=== PATIENT | female | born 1970 | race Caucasian/White ===

== ENCOUNTER 2017-04-11 08:30 | Emergency (ER) | payer BC, OTHER ==
[~2017-04-11 08:30] MED LIST: CELE200C PO; FLUO20CA16 PO; OLAN10TA3 PO; ZOLP5TAB PO
[2017-04-11] MEDS ORDERED: fentaNYL PF 100 MCG/2 ML VIAL IV PRN (09:00)
--- NOTE | 2017-04-11 09:04 | PHYS DOC ---
Past History Past Medical History: No Pertinent History Past Surgical History: , Hysterectomy Adult General Chief Complaint Chief Complaint: abdominal pain HPI HPI Patient is a 46 year old female who presents with complaint of left lower quadrant abdominal pain. Patient states that she has noticed pain in the affected area over the past month, however she states that she has been getting worsening sharp pains in this area over the past 2-3 days. The patient states that she has a constant dull ache in the affected area. Patient states that she started having constant sharp pain to this area this morning and it has been severe ever since. Patient rates her pain currently is 10 out of 10. Patient states that she has had associated diarrhea with her symptoms. Patient denies any passage of blood in her stool. Patient has had no fevers and denies dysuria. Patient states that occasionally she has taken Advil for her symptoms with no relief. Patient denies any significant past medical history. Patient has had history of a hysterectomy. Denies nausea or vomiting. Review of Systems Review of Systems Constitutional: Denies fever or chills [] Eyes: Denies change in visual acuity, redness, or eye pain [] HENT: Denies nasal congestion or sore throat [] Respiratory: Denies cough or shortness of breath [] Cardiovascular: Denies chest pain or edema [] GI: Abdominal pain, diarrhea, denies nausea, vomiting, or bloody stools [] : Denies dysuria or hematuria [] Musculoskeletal: Denies back pain or joint pain [] Integument: Denies rash or skin lesions [] Neurologic: Denies headache, focal weakness or sensory changes [] Current Medications Current Medications Current Medications Medications (Trade) Dose Ordered Sig/Emerita Start Time Stop Time Status Last Admin Dose Admin Fentanyl Citrate (Fentanyl 2ml Vial) 50 mcg PRN Q15MIN PRN 04/11/17 09:00 04/12/17 08:59 Ondansetron HCl (Zofran) 4 mg 1X ONCE 04/11/17 09:00 04/11/17 09:01 UNV Sodium Chloride 1,000 ml @ 1,000 mls/hr Q1H 04/11/17 09:10 04/11/17 10:09 Allergies Allergies Allergies Coded Allergies Type Severity Reaction Last Updated Verified No Known Drug Allergies 01/27/14 No Physical Exam Physical Exam Constitutional: Alert, afebrile, appears in moderate discomfort. [] HENT: Normocephalic, atraumatic, bilateral external ears normal, oropharynx moist, no oral exudates, nose normal. [] Eyes: PERRLA, EOMI, conjunctiva normal, no discharge. [] Neck: Normal range of motion, no tenderness, supple, no stridor. [] Cardiovascular:Heart rate regular rhythm, no murmur [] Lungs & Thorax: Bilateral breath sounds clear to auscultation [] Abdomen: Bowel sounds normal, soft, left lower quadrant tenderness to palpation with guarding, no rebound tenderness, no masses, no pulsatile masses. [] Skin: Warm, dry, no erythema, no rash. [] Back: No tenderness, no CVA tenderness. [] Extremities: No tenderness, no cyanosis, no clubbing, ROM intact, no edema. [] Neurologic: Alert and oriented X 3, normal motor function, normal sensory function, no focal deficits noted. [] Current Patient Data Vital Signs Vital Signs Date Time Temp Pulse Resp B/P (MAP) Pulse Ox O2 Delivery O2 Flow Rate FiO2 04/11/17 09:23 64 18 97/54 (68) 96 Room Air 04/11/17 08:30 98.6 Lab Results Laboratory Tests Test 04/11/17 09:00 04/11/17 09:33 White Blood Count 6.9 x10^3/uL Red Blood Count 4.16 x10^6/uL Hemoglobin 13.0 g/dL Hematocrit 38.6 % Mean Corpuscular Volume 93 fL Mean Corpuscular Hemoglobin 31 pg Mean Corpuscular Hemoglobin Concent 34 g/dL Red Cell Distribution Width 13.1 % Platelet Count 211 x10^3/uL Neutrophils (%) (Auto) 53 % Lymphocytes (%) (Auto) 33 % Monocytes (%) (Auto) 11 % Eosinophils (%) (Auto) 3 % Basophils (%) (Auto) 1 % Neutrophils # (Auto) 3.6 x10^3uL Lymphocytes # (Auto) 2.3 x10^3/uL Monocytes # (Auto) 0.7 x10^3/uL Eosinophils # (Auto) 0.2 x10^3/uL Basophils # (Auto) 0.1 x10^3/uL Sodium Level 140 mmol/L Potassium Level 4.0 mmol/L Chloride Level 105 mmol/L Carbon Dioxide Level 27 mmol/L Anion Gap 8 Blood Urea Nitrogen 11 mg/dL Creatinine 0.8 mg/dL Estimated GFR (Cockcroft-Gault) 77.9 BUN/Creatinine Ratio 14 Glucose Level 96 mg/dL Calcium Level 8.5 mg/dL Total Bilirubin 0.4 mg/dL Aspartate Amino Transf (AST/SGOT) 18 U/L Alanine Aminotransferase (ALT/SGPT) 21 U/L Alkaline Phosphatase 130 U/L Total Protein 6.9 g/dL Albumin 3.6 g/dL Albumin/Globulin Ratio 1.1 Lipase 128 U/L Urine Collection Type Void Urine Color Sonam Urine Clarity Clear Urine pH 7.0 Urine Specific Benedict 1.020 Urine Protein Neg Urine Glucose (UA) Neg mg/dL Urine Ketones (Stick) Neg mg/dL Urine Blood Neg Urine Nitrite Neg Urine Bilirubin Neg Urine Urobilinogen Dipstick 1 mg/dL Urine Leukocyte Esterase Neg Urine RBC 0 /HPF Urine WBC 0 /HPF Urine Squamous Epithelial Cells Occ /LPF Urine Transitional Epithelial Cells /LPF Urine Amorphous Sediment Present /HPF Urine Bacteria Few /HPF Urine Mucus Slight /LPF Current Medications Medications (Trade) Dose Ordered Sig/Emerita Route PRN Reason Start Time Stop Time Status Last Admin Dose Admin Fentanyl Citrate (Fentanyl 2ml Vial) 50 mcg PRN Q15MIN PRN IV PAIN GREATER THAN 3/10 04/11/17 09:00 04/12/17 08:59 04/11/17 09:21 Sodium Chloride 1,000 ml @ 1,000 mls/hr Q1H IV 04/11/17 09:10 04/11/17 10:10 DC 04/11/17 09:15 Ondansetron HCl (Zofran) 4 mg 1X ONCE IV 04/11/17 09:10 04/11/17 09:11 DC 04/11/17 09:18 Iohexol (Omnipaque 300 Mg/ml) 75 ml 1X ONCE IV 04/11/17 09:35 04/11/17 09:36 DC 04/11/17 09:35 EKG EKG Not performed [] Radiology/Procedures Radiology/Procedures [address] [address] IMAGING REPORT Signed PATIENT: BELL GARCIA ACCOUNT: [id number] : 1970 LOCATION: ER AGE: 46 SEX: F EXAM STATUS: PRE ER ORD. PHYSICIAN: JAVIER FRANCES MD REASON: left lower quadrant abdominal pain, diarrhea PROCEDURE: CT ABD PELV W/ IV CONTRST ONLY CT of the abdomen and pelvis with contrast, 04/11/2017: History: Left lower quadrant pain Multidetector CT imaging was performed following an IV bolus injection of iodinated contrast material. No oral contrast material was administered for this exam. There is no evidence of a hepatic mass or bile duct dilatation. No gallstones are evident. The pancreas is unremarkable. The spleen shows no abnormality. There is a tiny subcentimeter cyst in the lower pole of the right kidney. The kidneys show no evidence of obstruction. No renal calculi are seen. The adrenal glands are unremarkable. There is mild aortic calcific plaquing without evidence of aneurysm. No abdominal or pelvic adenopathy is seen. The uterus is surgically absent. The bowel loops are not dilated. The appendix is visualized and shows no abnormality. No free fluid or free air is evident in the abdomen or pelvis. A small unchanged sclerotic focus in the left femoral neck is compatible with a benign bone island. IMPRESSION: No acute abdominal or pelvic abnormality is detected. PQRS Compliance Statement: One or more of the following individualized dose reduction techniques were utilized for this examination: 1. Automated exposure control 2. Adjustment of the mA and/or kV according to patient size 3. Use of iterative reconstruction technique DICTATED AND SIGNED BY: ROBBIE CLAUDIO MD DATE: 04/11/17 0952 CC: JAVIER FRANCES MD; PCP,NO ~ [] Course & Med Decision Making Course & Med Decision Making Pertinent Labs and Imaging studies reviewed. (See chart for details) Patient was given IV fluids, fentanyl, and Zofran for symptoms. The patient's CT scan showed no acute abnormalities. Given patient's left lower quadrant pain with diarrhea, colitis remains a possible cause for patient's signs and symptoms. The patient will be empirically treated with Flagyl and Cipro. Patient also given prescriptions for Oden and Zofran for treatment of pain and nausea. Advise follow-up in 2 days with patient's primary doctor. I also provided referral information to Dr. Andrew of gastroenterology for patient to schedule an appointment in the next 1-2 weeks for further evaluation. Advised return emergency department for any worsening symptoms. Patient voiced understanding and in agreement with treatment plan. Dragon Disclaimer Dragon Disclaimer This chart was dictated in whole or in part using Voice Recognition software in a busy, high-work load, and often noisy Emergency Department environment. It may contain unintended and wholly unrecognized errors or omissions. Departure Departure: Impression: Primary Impression: Abdominal pain Disposition: HOME, SELF-CARE Condition: IMPROVED Referrals: PCP,JADE (PCP) KAYLIN ANDREW MD Patient Instructions: Abdominal Pain (Nonspecific) Additional Instructions: Follow-up with your primary doctor in the next 2 days for reevaluation. Schedule an appointment with Dr. Andrew of gastroenterology follow-up in the next 1-2 weeks. Return to the emergency department for any worsening symptoms. Scripts Ondansetron (ZOFRAN ODT) 4 Mg Tab.rapdis 1 TAB SL Q8HRS Y for NAUSEA/VOMITING, #20 TAB Prov: JAVIER FRANCES MD 04/11/17 Hydrocodone Bit/Acetaminophen (NORCO 5-325 TABLET) 1 Each Tablet 1-2 TAB PO Q4-6HRS Y for PAIN, #20 TAB Prov: JAVIER FRANCES MD 04/11/17 Ciprofloxacin Hcl (CIPRO) 500 Mg Tablet 1 TAB PO BID, #20 TAB Prov: JAVIER FRANCES MD 04/11/17 Metronidazole (FLAGYL) 500 Mg Tablet 1 TAB PO TID, #30 TAB Prov: JAVIER FRANCES MD 04/11/17 Problem Qualifiers Primary Impression: Abdominal pain Abdominal location: left lower quadrant Qualified Codes: R10.32 - Left lower quadrant pain JAVIER FRANCES MD Apr 11, 2017 09:04
[2017-04-11] MEDS ORDERED: IV NORMAL SALINE 1,000ML 1,000 ML IV SCH (09:10)
[2017-04-11] MEDS ORDERED: ONDANSETRON PF 4 MG/2 ML VIAL. IV ONE (09:10)
[2017-04-11 09:14] LABS: BASO # 0.1 x10^3/uL (0.0-0.2); BASO % 1 % (0-3); EOS # 0.2 x10^3/uL (0.0-0.7); EOS % 3 % (0-3); HEMATOCRIT 38.6 % (36.0-47.0); LYMPH # 2.3 x10^3/uL (1.0-4.8); LYMPH % 33 % (24-48); MEAN CORPUSCULAR HEMOGLOBIN 31 pg (25-35); MEAN CORPUSCULAR HGB CONC 34 g/dL (31-37); MEAN CORPUSCULAR VOLUME 93 fL (79-100); MONO # 0.7 x10^3/uL (0.0-1.1); MONO % 11 % (0-9); NEUT # 3.6 x10^3uL (1.8-7.7); NEUT % 53 % (31-73); PLATELET COUNT 211 x10^3/uL (140-400); RED BLOOD COUNT 4.16 x10^6/uL (3.50-5.40); RED CELL DISTRIBUTION WIDTH 13.1 % (11.5-14.5); WHITE BLOOD COUNT 6.9 x10^3/uL (4.0-11.0)
[2017-04-11 09:26] LABS: ALBUMIN 3.6 g/dL (3.4-5.0); ALBUMIN/GLOBULIN RATIO 1.1 (1.0-1.7); CALCIUM 8.5 mg/dL (8.5-10.1); CREATININE 0.8 mg/dL (0.6-1.0); GFR 77.9; TOTAL BILIRUBIN 0.4 mg/dL (0.2-1.0); TOTAL PROTEIN 6.9 g/dL (6.4-8.2)
[2017-04-11] MEDS ORDERED: IOHEXOL 300 MG/ML 75 ML VIAL. IV ONE (09:35)
[2017-04-11 09:48] LABS: BILIRUBIN,URINE NEG (NEG); CLARITY,URINE CLEAR; COLOR,URINE AMBER; GLUCOSE,URINE NEG (NEG); NITRITE,URINE NEG (NEG); UROBILINOGEN,URINE 1 mg/dL (0.2 mg/dL); WBC,URINE 0 /HPF (0-4)
[2017-04-11 09:49] LABS: AMORPHOUS SEDIMENT,UR PRESENT /HPF; BACTERIA,URINE FEW /HPF (0-FEW); RBC,URINE 0 /HPF (0-2); SQUAMOUS EPITHELIAL CELL,UR OCC /LPF
--- NOTE | 2017-04-11 10:02 | RAD ---
CT of the abdomen and pelvis with contrast, 04/11/2017: History: Left lower quadrant pain Multidetector CT imaging was performed following an IV bolus injection of iodinated contrast material. No oral contrast material was administered for this exam. There is no evidence of a hepatic mass or bile duct dilatation. No gallstones are evident. The pancreas is unremarkable. The spleen shows no abnormality. There is a tiny subcentimeter cyst in the lower pole of the right kidney. The kidneys show no evidence of obstruction. No renal calculi are seen. The adrenal glands are unremarkable. There is mild aortic calcific plaquing without evidence of aneurysm. No abdominal or pelvic adenopathy is seen. The uterus is surgically absent. The bowel loops are not dilated. The appendix is visualized and shows no abnormality. No free fluid or free air is evident in the abdomen or pelvis. A small unchanged sclerotic focus in the left femoral neck is compatible with a benign bone island. IMPRESSION: No acute abdominal or pelvic abnormality is detected. PQRS Compliance Statement: One or more of the following individualized dose reduction techniques were utilized for this examination: 1. Automated exposure control 2. Adjustment of the mA and/or kV according to patient size 3. Use of iterative reconstruction technique
[2017-04-11] MEDS ORDERED: CIPR500T94 PO (10:26)
[2017-04-11] MEDS ORDERED: METR500T PO (10:26)
[2017-04-11] MEDS ORDERED: ONDA4TAB10 SL (10:26)
[2017-04-11] MEDS ORDERED: HYDR-971 PO (10:26)
[2017-04-11 10:40] VITALS: BP 102/59
== END 2017-04-11 10:40 | disposition home or self-care (01) ==
LOC: ER 08:30
DX: R10.32 Left lower quadrant pain (principal); R11.0 Nausea; Z90.710 Acquired absence of both cervix and uterus; Z98.890 Other specified postprocedural states
CPT/HCPCS: 36415; 74177; 80053; 81001; 83690; 85027; 96361; 96374; 96375; 99285; J2405; J3010; Q9967; J7030

== ENCOUNTER 2018-03-07 16:57 | Emergency (ER) | payer SELFPAY ==
[~2018-03-07] VITALS: Ht 167.6 cm; Wt 83.9 kg
[~2018-03-07 16:57] MED LIST changes: +CIPR500T94 PO; +HYDR-971 PO; +METR500T PO; +ONDA4TAB10 SL
[2018-03-07 17:39] LABS: BACTERIA,URINE FEW /HPF (0-FEW); BILIRUBIN,URINE NEG (NEG); CLARITY,URINE HAZY; COLOR,URINE YELLOW; GLUCOSE,URINE NEG (NEG); NITRITE,URINE NEG (NEG); RBC,URINE 0 /HPF (0-2); SQUAMOUS EPITHELIAL CELL,UR MANY /LPF; UROBILINOGEN,URINE 0.2 mg/dL (0.2 mg/dL); WBC,URINE RARE /HPF (0-4)
--- NOTE | 2018-03-07 17:58 | PHYS DOC ---
Past History Past Medical History: Anxiety, Depression Past Surgical History: , Hysterectomy, Other Alcohol Use: Rarely Drug Use: None Adult General Chief Complaint Chief Complaint: ABDOMINAL PAIN HPI HPI Patient is a 47-year-old female present with left-sided abdominal pain she says it is on her left flank area right where her pelvis bone meets her stomach she says it has been there 3 days it is getting worse it is described as sharp worse with twisting or bending is better when she sits still. She does not have any urinary symptoms she has had a hysterectomy and her ovaries removed as well. She has had a kidney stone on the right side in the remote past. Of note she did have an emergency room visit for pain in similar location last year with a negative CAT scan patient has no fever no vomiting JUST THE PAIN Review of Systems Review of Systems Constitutional: Denies fever or chills [] Cardiovascular: No additional information not addressed in HPI [] GI: HPI NEG FOR DIARRHEA : Denies dysuria or hematuria [] Musculoskeletal: HPI All other systems were reviewed and found to be within normal limits, except as documented in this note. Family History Family History Father has had colon cancer dx at age 50. Allergies Allergies Allergies Coded Allergies Type Severity Reaction Last Updated Verified No Known Drug Allergies 01/27/14 No Physical Exam Physical Exam Constitutional: Well developed, well nourished, no acute distress, non-toxic appearance. [] HENT: Normocephalic, atraumatic, bilateral external ears normal, oropharynx moist, no oral exudates, nose normal. [] Eyes: PERRLA, EOMI, conjunctiva normal, no discharge. [] Neck: Normal range of motion, no tenderness, supple, no stridor. [] Normal respiratory effort no increased work of breathing Abdomen: Bowel sounds normal, soft, there is mild tenderness to palpation in the left lower quadrant just adjacent to the ASIS no peritoneal signs. Old surgery scars. Skin: Warm, dry, no erythema, no rash. [] Multiple tattoos noted Back: No tenderness, no CVA tenderness. [] Extremities: No tenderness, no cyanosis, no clubbing, ROM intact, no edema. [] Neurologic: Alert and oriented X 3, normal motor function, normal sensory function, no focal deficits noted. [] Psychologic: Affect normal, judgement normal, mood normal. [] Current Patient Data Vital Signs Vital Signs Date Time Temp Pulse Resp B/P (MAP) Pulse Ox O2 Delivery O2 Flow Rate FiO2 03/07/18 17:10 98.6 75 16 97 Room Air Lab Results Laboratory Tests Test 03/07/18 17:14 Urine Collection Type Unknown Urine Color Yellow Urine Clarity Hazy Urine pH 5.0 Urine Specific Cisco 1.025 Urine Protein Neg (NEG-TRACE) Urine Glucose (UA) Neg mg/dL (NEG) Urine Ketones (Stick) Neg mg/dL (NEG) Urine Blood Neg (NEG) Urine Nitrite Neg (NEG) Urine Bilirubin Neg (NEG) Urine Urobilinogen Dipstick 0.2 mg/dL (0.2 mg/dL) Urine Leukocyte Esterase Neg (NEG) Urine RBC 0 /HPF (0-2) Urine WBC Rare /HPF (0-4) Urine Squamous Epithelial Cells Many /LPF Urine Bacteria Few /HPF (0-FEW) Urine Mucus Mod /LPF EKG EKG [] Radiology/Procedures Radiology/Procedures CT of abdomen noncontrast shows no hydronephrosis. Does have findings of previous renal stones. No current stone causing hydronephrosis. No other surgical pathology appreciated this time. Course & Med Decision Making Course & Med Decision Making Pertinent Labs and Imaging studies reviewed. (See chart for details) []This is a 47-year-old female who is status post hysterectomy and nephrectomy who is presenting with left-sided abdominal discomfort differential diagnosis includes renal colic versus diverticulitis versus urinary tract infection. UA is noted no obvious findings on this. I did talk to the patient about the risks and benefits of a CAT scan primarily to evaluate for renal colic less likely diverticulitis. She says she would like to know for sure what is going on lab work is currently pending CT scan is also pending care will be signed over to DR SAENZ 6 PM Encouraged patient to follow-up primary care. Clear fluid diet for the next 24- 48 hours. No solid or milk products. Must allow complete bowel rest. May take Vicoprofen up to 3 times a day for marked pain. Zofran for nausea. Strongly recommend colonoscopy evaluate for colitis, diverticulitis and Crohn since her father had colon cancer by age 50. Return if any concerns. No current surgical pathology appreciated at this time. . Contrast CT could be considered if further workup desired. But with normal vitals and labs will monitor on clear fluid s diet first. Patient return if any concerns. Patient reports minimal discomfort at this time refuses any pain tablets. Impression: 1. Abdomen pain 2. Renal colic- has findings of stones in kidneys and bladder- no hydronephrosis this time 3. Possible colitis or diverticulitis-has caused pain 4. Possible adhesion pain- prior surgeries Dragon Disclaimer Dragon Disclaimer This electronic medical record was generated, in whole or in part, using a voice recognition dictation system. Departure Departure: Referrals: PCP,JADE (PCP) Scripts Ondansetron (ZOFRAN ODT) 8 Mg Tab.rapdis 8 MG PO QIDPRN PRN for PAIN, #30 Prov: DEXTER SAENZ MD 03/07/18 Hydrocodone/Ibuprofen (HYDROCODONE-IBUPROFEN 7.5-200 ) 1 Each Tablet 1 TAB PO PRN Q6HRS PRN for PAIN, #30 TAB 0 Refills Prov: DEXTER SAENZ MD 03/07/18 LOWELL CULP MD Mar 07, 2018 17:58 DEXTER SAENZ MD Mar 07, 2018 19:44
[2018-03-07 18:07] LABS: BASO # 0.1 x10^3/uL (0.0-0.2); BASO % 1 % (0-3); EOS # 0.2 x10^3/uL (0.0-0.7); EOS % 2 % (0-3); HEMATOCRIT 40.9 % (36.0-47.0); LYMPH % 38 % (24-48); MEAN CORPUSCULAR HEMOGLOBIN 33 pg (25-35); MEAN CORPUSCULAR HGB CONC 34 g/dL (31-37); MEAN CORPUSCULAR VOLUME 95 fL (79-100); MONO # 0.6 x10^3/uL (0.0-1.1); MONO % 7 % (0-9); NEUT % 52 % (31-73); PLATELET COUNT 217 x10^3/uL (140-400); RED CELL DISTRIBUTION WIDTH 13.4 % (11.5-14.5); WHITE BLOOD COUNT 7.7 x10^3/uL (4.0-11.0)
[2018-03-07 18:22] LABS: ALBUMIN 3.9 g/dL (3.4-5.0); ALBUMIN/GLOBULIN RATIO 1.2 (1.0-1.7); CALCIUM 8.8 mg/dL (8.5-10.1); CREATININE 0.8 mg/dL (0.6-1.0); GFR 77.6; POTASSIUM 4.1 mmol/L (3.5-5.1); TOTAL BILIRUBIN 0.4 mg/dL (0.2-1.0); TOTAL PROTEIN 7.1 g/dL (6.4-8.2)
--- NOTE | 2018-03-07 19:18 | RAD ---
EXAM: CT ABDOMEN/PELVIS WITHOUT CONTRAST. HISTORY: Left flank pain. History of renal stones. TECHNIQUE: Computed tomography of the abdomen and pelvis was performed without intravenous contrast. COMPARISON: None. FINDINGS: Lung windows through the visualized portions of the bases reveal mild atelectasis. Bone windows reveal no suspicious lesions. A calculus in the left interpolar region measures 3 mm. There is no hydronephrosis. There are no ureteral calculi bilaterally. A small cyst at the right renal lower pole measures 9 mm. There are no bladder calculi. The uterus is surgically absent. The appendix is not inflamed. There is no small bowel obstruction. The liver, gallbladder, pancreas, adrenal glands and spleen are unremarkable without contrast. There are no pathologically enlarged lymph nodes. IMPRESSION: 1. 3 mm left renal calculus. 2. No ureteral calculi. No cause for acute pain is identified. *One or more of the following individualized dose reduction techniques were utilized for this examination: 1. Automated exposure control. 2. Adjustment of the mA and/or kV according to patient size. 3. Use of iterative reconstruction technique. Electronically signed by: Lucero Brothers MD (03/07/2018 7:15 PM) [facility]
[2018-03-07] MEDS ORDERED: ONDA8TAB12 PO (19:31)
[2018-03-07] MEDS ORDERED: HYDR-79 PO (19:31)
[2018-03-07 19:42] VITALS: BP 134/80
== END 2018-03-07 19:45 | disposition home or self-care (01) ==
LOC: ER 16:57
DX: N20.0 Calculus of kidney (principal); Z90.710 Acquired absence of both cervix and uterus; Z98.890 Other specified postprocedural states
CPT/HCPCS: 36415; 74176; 80053; 81001; 85025; 99285-25

== ENCOUNTER 2018-12-22 06:20 | Emergency (ER) | payer BC ==
[~2018-12-22] VITALS: Ht 167.6 cm; Wt 72.6 kg
[~2018-12-22 06:20] MED LIST changes: +HYDR-1179 PO; +HYDR-3165 PO; -HYDR-971 PO; +ONDA8TAB12 PO
[2018-12-22 07:07] LABS: BASO # 0.1 x10^3/uL (0.0-0.2); BASO % 1 % (0-3); EOS # 0.2 x10^3/uL (0.0-0.7); EOS % 2 % (0-3); HEMATOCRIT 39.4 % (36.0-47.0); HEMOGLOBIN 13.5 g/dL (12.0-15.5); LYMPH # 3.3 x10^3/uL (1.0-4.8); LYMPH % 38 % (24-48); MEAN CORPUSCULAR HEMOGLOBIN 32 pg (25-35); MEAN CORPUSCULAR HGB CONC 34 g/dL (31-37); MEAN CORPUSCULAR VOLUME 94 fL (79-100); MONO # 0.6 x10^3/uL (0.0-1.1); MONO % 7 % (0-9); NEUT # 4.6 x10^3uL (1.8-7.7); NEUT % 53 % (31-73); PLATELET COUNT 225 x10^3/uL (140-400); RED BLOOD COUNT 4.21 x10^6/uL (3.50-5.40); WHITE BLOOD COUNT 8.7 x10^3/uL (4.0-11.0)
[2018-12-22] MEDS ORDERED: ASPIRIN 325 MG TABLET ONE (07:10)
[2018-12-22 07:13] LABS: ALBUMIN 4.1 g/dL (3.4-5.0); ALBUMIN/GLOBULIN RATIO 1.3 (1.0-1.7); CALCIUM 9.3 mg/dL (8.5-10.1); CREATININE 0.8 mg/dL (0.6-1.0); GFR 77.2; POTASSIUM 3.8 mmol/L (3.5-5.1); TOTAL BILIRUBIN 0.4 mg/dL (0.2-1.0); TOTAL PROTEIN 7.3 g/dL (6.4-8.2)
[2018-12-22] MEDS ORDERED: ASPIRIN 81 MG TAB.CHEW PO ONE (07:30)
--- NOTE | 2018-12-22 07:40 | PHYS DOC ---
Past History Past Medical History: Anxiety, Depression, Other Past Surgical History: , Hysterectomy, Other Smoking: Cigarettes Alcohol Use: Rarely Drug Use: None Adult General Chief Complaint Chief Complaint: Palpitations HPI HPI Patient is a 48 year old female who presents with complaining of heart racing and back pain. Patient complaining of intermittent episodes of feeling of shaking on her chest and didn't heart racing that usually last less than 1 minute with left arm electrical shock-like pain at the same time without shortness of breath, dizziness, nausea and vomiting. Patient states she had 4-5 episodes of this feeling for the last 2 weeks without chest pain but today had 1 episode that was associated with left sided chest heaviness and rated her pain 3/10 associated with shortness of breath that resolved after 1 minute. Patient also complaining of sharp pain in upper back for the last 3 days as a constant pain that getting worse with movement and taking deep breaths and rated her pain 10/10 during movement. Patient states she did not take any pain medication and doesn't like to take pain medication. Patient denies history of chest pain, palpitation, recent stress, fever and chills, nausea and vomiting, diarrhea and constipation. Patient states she drinks several coffee daily. The patient has history of anxiety and depression and denies hypertension, diabetes , dyslipidemia, coronary artery disease. Patient had positive family history of coronary artery disease and currently is a smoker. Review of Systems Review of Systems Constitutional: Denies fever or chills [] Eyes: Denies change in visual acuity, redness, or eye pain [] HENT: Denies nasal congestion or sore throat [] Respiratory: Denies cough or shortness of breath [] Cardiovascular: No additional information not addressed in HPI [] GI: Denies abdominal pain, nausea, vomiting, bloody stools or diarrhea [] : Denies dysuria or hematuria [] Musculoskeletal: Reports back pain, denies joint pain [] Integument: Denies rash or skin lesions [] Neurologic: Denies headache, focal weakness or sensory changes [] Endocrine: Denies polyuria or polydipsia [] All other systems were reviewed and found to be within normal limits, except as documented in this note. Current Medications Current Medications Current Medications Medications (Trade) Dose Ordered Sig/Emerita Start Time Stop Time Status Last Admin Dose Admin Aspirin (Lorraine Aspirin) 325 mg STK-MED ONCE 12/22/18 07:10 12/22/18 07:11 DC Aspirin (Children'S Aspirin) 324 mg 1X ONCE 12/22/18 07:30 12/22/18 07:31 Allergies Allergies Allergies Coded Allergies Type Severity Reaction Last Updated Verified No Known Drug Allergies 01/27/14 No Physical Exam Physical Exam Constitutional: Well developed, well nourished, mild distress, non-toxic appearance. [] HENT: Normocephalic, atraumatic Eyes: PERRLA, EOMI, conjunctiva normal, no discharge. [] Neck: Normal range of motion, no tenderness, supple, no stridor. [] Cardiovascular:Heart rate regular rhythm, no murmur [] Lungs & Thorax: Bilateral breath sounds clear to auscultation, mild left reproducible chest pain [] Abdomen: Bowel sounds normal, soft, no tenderness, no masses, no pulsatile masses. [] Skin: Warm, dry, no erythema, no rash. [] Back: Painful range of motion of thoracic spine, no midline tenderness, no CVA tenderness. [] Extremities: No tenderness, no cyanosis, no clubbing, ROM intact, no edema. [] Neurologic: Alert and oriented X 3, normal motor function, normal sensory function, no focal deficits noted. [] Psychologic: Affect anxious, judgement normal, mood normal. [] Current Patient Data Vital Signs Vital Signs Date Time Temp Pulse Resp B/P (MAP) Pulse Ox O2 Delivery O2 Flow Rate FiO2 12/22/18 06:20 97.7 76 18 100 Room Air Lab Results Laboratory Tests Test 12/22/18 06:35 White Blood Count 8.7 x10^3/uL (4.0-11.0) Red Blood Count 4.21 x10^6/uL (3.50-5.40) Hemoglobin 13.5 g/dL (12.0-15.5) Hematocrit 39.4 % (36.0-47.0) Mean Corpuscular Volume 94 fL (79-100) Mean Corpuscular Hemoglobin 32 pg (25-35) Mean Corpuscular Hemoglobin Concent 34 g/dL (31-37) Red Cell Distribution Width 13.0 % (11.5-14.5) Platelet Count 225 x10^3/uL (140-400) Neutrophils (%) (Auto) 53 % (31-73) Lymphocytes (%) (Auto) 38 % (24-48) Monocytes (%) (Auto) 7 % (0-9) Eosinophils (%) (Auto) 2 % (0-3) Basophils (%) (Auto) 1 % (0-3) Neutrophils # (Auto) 4.6 x10^3uL (1.8-7.7) Lymphocytes # (Auto) 3.3 x10^3/uL (1.0-4.8) Monocytes # (Auto) 0.6 x10^3/uL (0.0-1.1) Eosinophils # (Auto) 0.2 x10^3/uL (0.0-0.7) Basophils # (Auto) 0.1 x10^3/uL (0.0-0.2) Sodium Level 142 mmol/L (136-145) Potassium Level 3.8 mmol/L (3.5-5.1) Chloride Level 104 mmol/L (98-107) Carbon Dioxide Level 29 mmol/L (21-32) Anion Gap 9 (6-14) Blood Urea Nitrogen 9 mg/dL (7-20) Creatinine 0.8 mg/dL (0.6-1.0) Estimated GFR (Cockcroft-Gault) 77.2 BUN/Creatinine Ratio 11 (6-20) Glucose Level 84 mg/dL (70-99) Calcium Level 9.3 mg/dL (8.5-10.1) Magnesium Level 2.0 mg/dL (1.8-2.4) Total Bilirubin 0.4 mg/dL (0.2-1.0) Aspartate Amino Transferase (AST) 17 U/L (15-37) Alanine Aminotransferase (ALT) 23 U/L (14-59) Alkaline Phosphatase 103 U/L (46-116) Creatine Kinase 109 U/L (26-192) Troponin I Quantitative < 0.017 ng/mL (0-0.055) OS-Omm-X-Type Natriuretic Peptide 52 pg/mL (0-124) Total Protein 7.3 g/dL (6.4-8.2) Albumin 4.1 g/dL (3.4-5.0) Albumin/Globulin Ratio 1.3 (1.0-1.7) Lipase 107 U/L (73-393) EKG EKG EKG interpreted by. EKG at 0 635 showed normal sinus rhythm at rate of 77, normal VT and QT interval, poor R-wave progress in anteroseptal leads, no acute distress and T-wave abnormalities. Radiology/Procedures Radiology/Procedures [address] [address] IMAGING REPORT Signed PATIENT: BELL GARCIA ACCOUNT: [id number] : 1970 LOCATION: ER AGE: 48 SEX: F EXAM STATUS: REG ER ORD. PHYSICIAN: LORENE SALEEM MD REASON: chest pain PROCEDURE: CHEST PA & LATERAL Chest, 2 views, 12/22/2018: HISTORY: Shoulder and chest pain Comparison is made to a study from 08/15/2015. The heart size and pulmonary vascularity are normal. No pulmonary infiltrate is seen. There is no evidence of pleural fluid. IMPRESSION: No acute cardiopulmonary abnormality is detected. Electronically signed by: Kash Parada MD (12/22/2018 7:39 AM) [facility] DICTATED AND SIGNED BY: KASH PARADA MD DATE: 12/22/18 0739 CC: LORENE SALEEM MD; PCP,NO ~ [address] [address] IMAGING REPORT Signed PATIENT: BELL GARCIA ACCOUNT: [id number] : 1970 LOCATION: ER AGE: 48 SEX: F EXAM STATUS: REG ER ORD. PHYSICIAN: LORENE SALEEM MD REASON: BACK PAIN x 3 days PROCEDURE: ABDOMEN LTD Limited ultrasound abdomen December 22, 2018 INDICATION: Back pain for 3 days. COMPARISON: CT abdomen/pelvis March 07, 2018 TECHNIQUE: Ultrasonographic images of the right upper quadrant were obtained utilizing grayscale and color Doppler. FINDINGS: Visualized portions of the pancreas appear normal. Aorta and IVC are patent. Liver is homogeneous in echotexture without evidence for a focal mass lesion. There is no intrahepatic biliary ductal dilatation. Common bile duct is mildly prominent measuring up to 7 mm. There is hepatopedal flow within the portal venous system. Gallbladder is contracted limiting evaluation. No gallstones, gallbladder wall thickening or pericholecystic fluid is noted. The right kidney measures 10.9 x 5.3 x 4.3 cm. There is no hydronephrosis. No suspicious renal mass or renal calculi. There is no free fluid in the right upper quadrant. IMPRESSION: There is mild dilatation of the common bile duct measuring up to 7 mm. Correlate with biliary enzymes and if elevated, further evaluation with MRCP may be of benefit. Contracted gallbladder limits evaluation on this examination. Electronically signed by: Ahmet Fair MD (12/22/2018 8:07 AM) [facility] DICTATED AND SIGNED BY: AHMET FAIR MD DATE: 12/22/18806 CC: LORENE SALEEM MD; PCP,JADE ~ Course & Med Decision Making Course & Med Decision Making Pertinent Labs and Imaging studies reviewed. (See chart for details) Evaluation of patient in ER showed 48-year-old female patient with complaining of intermittent episodes of palpitation for 2 weeks and constant thoracic back pain for 3 days. Patient did not have any treatment while she was in ER. Labs and chest x-ray was unremarkable and gallbladder ultrasound showed contracted gallbladder with mildly dilated common bile duct without abnormal liver enzymes or positive Palmer sign. Patient informed about this result and needs to follow up with her primary care physician or career services director for possible Holter monitor for evaluation for palpitation. Patient treated with Toradol in ER with mild improvement of her pain. Plan discharge patient home with prescription of Flexeril and Morven and instruction to cut down on caffeine intake and smoking. Dragon Disclaimer Dragon Disclaimer This electronic medical record was generated, in whole or in part, using a voice recognition dictation system. Departure Departure: Impression: Primary Impression: Palpitation Additional Impressions: Musculoskeletal chest pain Acute thoracic myofascial strain Tobacco abuse Tobacco abuse counseling Disposition: HOME, SELF-CARE (at 0846) Condition: IMPROVED Referrals: PCPJADE (PCP) ELIAS RODRIGEZ MD Patient Instructions: Chest Wall Pain, Palpitations, Smoking Cessation, Tips For Success, Thoracic Strain Additional Instructions: Apply ice on your back Follow-up with your primary care physician or on-call career services director in 1-2 days for possible Holter monitor for evaluation of palpitation Return to ER if not getting better Do not getting too much coffee Scripts Hydrocodone Bit/Acetaminophen (NORCO 5-325 TABLET) 1 Each Tablet 1 TAB PO PRN Q6HRS PRN for PAIN, #14 TAB 0 Refills Prov: LORENE SALEEM MD 12/22/18 Cyclobenzaprine Hcl (CYCLOBENZAPRINE HCL) 10 Mg Tablet 1 TAB PO TID for pain, #20 TAB Prov: LORENE SALEEM MD 12/22/18 Problem Qualifiers Additional Impressions: Acute thoracic myofascial strain Encounter type: subsequent encounter Qualified Codes: S29.019D - Strain of muscle and tendon of unspecified wall of thorax, subsequent encounter LORENE SALEEM MD Dec 22, 2018 07:40
[2018-12-22 08:00] VITALS: BP 127/64
--- NOTE | 2018-12-22 08:10 | RAD ---
Limited ultrasound abdomen December 22, 2018 INDICATION: Back pain for 3 days. COMPARISON: CT abdomen/pelvis March 07, 2018 TECHNIQUE: Ultrasonographic images of the right upper quadrant were obtained utilizing grayscale and color Doppler. FINDINGS: Visualized portions of the pancreas appear normal. Aorta and IVC are patent. Liver is homogeneous in echotexture without evidence for a focal mass lesion. There is no intrahepatic biliary ductal dilatation. Common bile duct is mildly prominent measuring up to 7 mm. There is hepatopedal flow within the portal venous system. Gallbladder is contracted limiting evaluation. No gallstones, gallbladder wall thickening or pericholecystic fluid is noted. The right kidney measures 10.9 x 5.3 x 4.3 cm. There is no hydronephrosis. No suspicious renal mass or renal calculi. There is no free fluid in the right upper quadrant. IMPRESSION: There is mild dilatation of the common bile duct measuring up to 7 mm. Correlate with biliary enzymes and if elevated, further evaluation with MRCP may be of benefit. Contracted gallbladder limits evaluation on this examination. Electronically signed by: Dina Leslie MD (12/22/2018 8:07 AM) [facility]
[2018-12-22] MEDS ORDERED: KETOROLAC 30 MG/ML VIAL. IV ONE (08:45)
[2018-12-22] MEDS ORDERED: CYCL-331 PO (08:49)
[2018-12-22] MEDS ORDERED: HYDR-3165 PO (08:49)
--- NOTE | 2018-12-22 21:29 | EKG ---
[address] [address] Test Date: 2018-12-22 Test Time: 06:31:25 Pat Name: BELL GARCIA Department: Room: Gender: F De Icer: ALEXANDR : 1970 Requested By: LORENE SALEEM Order Number: [id number] Reading MD: Min Wade MD Measurements Intervals [place] Rate: 77 P: 51 ME: 132 QRS: 39 QRSD: 88 T: 48 QT: 374 QTc: 425 Interpretive Statements SINUS RHYTHM Electronically Signed On 12-23-2018 9:08:16 CDT by Min Wade MD
== END 2018-12-22 08:57 | disposition home or self-care (01) ==
LOC: ER 06:20
DX: S39.012A Strain of muscle, fascia and tendon of lower back, initial encounter (principal); R07.89 Other chest pain; R00.2 Palpitations; F41.9 Anxiety disorder, unspecified; F31.9 Bipolar disorder, unspecified; F17.210 Nicotine dependence, cigarettes, uncomplicated; Z71.6 Tobacco abuse counseling; X58.XXXA Exposure to other specified factors, initial encounter; Y93.89 Activity, other specified; Y92.89 Other specified places as the place of occurrence of the external cause; Y99.8 Other external cause status
CPT/HCPCS: 36415; 71046; 76705; 80053; 82550; 83690; 83735; 83880; 84484; 85025; 93005; 96374; 99284; J1885

== ENCOUNTER → 2019-06-18 | Outpatient (CLI) | payer BC ==
[~2019-06-18] MED LIST changes: +CYCL-331 PO; +IOHEXOL 240 MG/ML 50ML VIAL. ONE; +IOHEXOL 300 MG/ML 75 ML VIAL. IV ONE
[2019-06-18 09:29] LABS: BASO # 0.1 x10^3/uL (0.0-0.2); BASO % 1 % (0-3); EOS # 0.2 x10^3/uL (0.0-0.7); EOS % 2 % (0-3); HEMATOCRIT 41.9 % (36.0-47.0); HEMOGLOBIN 14.1 g/dL (12.0-15.5); LYMPH # 3.1 x10^3/uL (1.0-4.8); LYMPH % 32 % (24-48); MEAN CORPUSCULAR HEMOGLOBIN 32 pg (25-35); MEAN CORPUSCULAR HGB CONC 34 g/dL (31-37); MEAN CORPUSCULAR VOLUME 94 fL (79-100); MONO # 0.7 x10^3/uL (0.0-1.1); MONO % 7 % (0-9); NEUT # 5.5 x10^3uL (1.8-7.7); NEUT % 58 % (31-73); PLATELET COUNT 263 x10^3/uL (140-400); RED BLOOD COUNT 4.46 x10^6/uL (3.50-5.40); RED CELL DISTRIBUTION WIDTH 13.1 % (11.5-14.5); WHITE BLOOD COUNT 9.5 x10^3/uL (4.0-11.0)
[2019-06-18 09:40] LABS: ALBUMIN 4.2 g/dL (3.4-5.0); ALBUMIN/GLOBULIN RATIO 1.2 (1.0-1.7); CALCIUM 9.2 mg/dL (8.5-10.1); CREATININE 0.8 mg/dL (0.6-1.0); GFR 77.2; POTASSIUM 4.3 mmol/L (3.5-5.1); TOTAL BILIRUBIN 0.3 mg/dL (0.2-1.0); TOTAL PROTEIN 7.7 g/dL (6.4-8.2)
[2019-06-18 10:46] LABS: SEDIMENTATION RATE 6 (0-25)
--- NOTE | 2019-06-18 13:10 | RAD ---
CT of the abdomen and pelvis with contrast 06/18/2019 INDICATION: Lower abdominal pain. COMPARISON STUDY: CT of the abdomen and pelvis March 07, 2018. Ultrasound of the abdomen December 22, 2018 TECHNIQUE: Multidetector CT imaging of the abdomen and pelvis was performed following the administration of IV and enteric contrast. Visualized lung bases demonstrate no acute abnormality. Liver, gallbladder, adrenal glands, spleen, pancreas and kidneys demonstrate no acute abnormality. There is no bowel obstruction. No acute inflammatory changes involving the visualized bowel are identified. The appendix is unremarkable in appearance. Prior hysterectomy noted. Limited visualization of the bladder is unremarkable. No acute osseous abnormalities are seen. IMPRESSION: No evidence of acute intra-abdominal abnormality is identified CT DOSING PQRS STATEMENT: One or more of the following individualized dose reduction techniques were utilized for this examination: 1. Automated exposure control 2. Adjustment of the mA and/or kV according to patient size 3. Use of iterative reconstruction technique Electronically signed by: Tapan Helm MD (06/18/2019 1:08 PM) [facility]
== END | disposition home or self-care (01) ==
LOC: PMG 08:47
PROVIDERS: ATTEND Physician Assistant
DX: R10.32 Left lower quadrant pain (principal); J45.909 Unspecified asthma, uncomplicated; F17.200 Nicotine dependence, unspecified, uncomplicated; Z90.710 Acquired absence of both cervix and uterus
CPT/HCPCS: 36415; 74177; 80053; 82150; 83690; 85025; 85651; Q9966; Q9967

== ENCOUNTER → 2019-10-02 | Outpatient (CLI) | payer BC ==
[~2019-10-02] MED LIST changes: -IOHEXOL 240 MG/ML 50ML VIAL. ONE; -IOHEXOL 300 MG/ML 75 ML VIAL. IV ONE
--- NOTE | 2019-10-02 11:39 | RAD ---
LUMBAR SPINE 2-3V DATE: 10/02/2019 12:00 AM INDICATION: Low back pain COMPARISON: CT abdomen pelvis 06/18/2019. Radiograph 09/10/2014. FINDINGS: Five non-rib bearing lumbar-type vertebral bodies are present. Bones/Alignment: No evidence of acute compression fracture. There is no listhesis. Joints: Mild degenerative disc disease Miscellaneous: Aortoiliac atherosclerotic disease. IMPRESSION: No evidence of acute compression fracture. Mild lumbar spondylosis. Electronically signed by: Quincy Maldonado MD (10/02/2019 11:36 AM) [facility]
== END | disposition home or self-care (01) ==
LOC: PMG 08:34
PROVIDERS: ATTEND Registered Nurse
DX: M47.816 Spondylosis without myelopathy or radiculopathy, lumbar region (principal); I70.0 Atherosclerosis of aorta
CPT/HCPCS: 72100

== ENCOUNTER 2019-11-12 14:34 | Emergency (ER) | payer BC ==
[~2019-11-12] VITALS: Ht 167.6 cm; Wt 75.0 kg
[2019-11-12] MEDS ORDERED: IV NORMAL SALINE 500ML 500 ML IV ONE (15:00)
[2019-11-12] MEDS ORDERED: ONDANSETRON PF 4 MG/2 ML VIAL. IV ONE (15:00)
[2019-11-12] MEDS ORDERED: IV NORMAL SALINE 1,000ML 1,000 ML IV ONE (15:15)
[2019-11-12 15:20] LABS: BASO # 0.1 x10^3/uL (0.0-0.2); BASO % 1 % (0-3); EOS # 0.2 x10^3/uL (0.0-0.7); EOS % 1 % (0-3); HEMATOCRIT 38.8 % (36.0-47.0); HEMOGLOBIN 12.8 g/dL (12.0-15.5); LYMPH # 3.6 x10^3/uL (1.0-4.8); LYMPH % 30 % (24-48); MEAN CORPUSCULAR HEMOGLOBIN 31 pg (25-35); MEAN CORPUSCULAR HGB CONC 33 g/dL (31-37); MEAN CORPUSCULAR VOLUME 94 fL (79-100); MONO # 1.3 x10^3/uL (0.0-1.1); MONO % 11 % (0-9); NEUT # 6.9 x10^3uL (1.8-7.7); NEUT % 57 % (31-73); PLATELET COUNT 234 x10^3/uL (140-400); RED BLOOD COUNT 4.12 x10^6/uL (3.50-5.40); RED CELL DISTRIBUTION WIDTH 12.9 % (11.5-14.5); WHITE BLOOD COUNT 12.1 x10^3/uL (4.0-11.0)
[2019-11-12 15:22] LABS: CALCIUM 9.1 mg/dL (8.5-10.1); CREATININE 0.8 mg/dL (0.6-1.0); GFR 77.2; POTASSIUM 3.8 mmol/L (3.5-5.1)
[2019-11-12 15:28] LABS: ALBUMIN 3.8 g/dL (3.4-5.0); ALBUMIN/GLOBULIN RATIO 1.2 (1.0-1.7); TOTAL BILIRUBIN 0.3 mg/dL (0.2-1.0); TOTAL PROTEIN 7.1 g/dL (6.4-8.2)
--- NOTE | 2019-11-12 16:07 | RAD ---
Examination: Ultrasound abdomen limited History right upper quadrant pain COMPARISON: None available FINDINGS: The liver length measures 14.8 cm. The common bile duct measures 8 mm in diameter. Gallbladder wall thickness measures 1.1 mm. The common bile duct measures 8 mm in diameter. No evidence of gallstones identified. Visualized pancreas grossly appears unremarkable. The right kidney measures 11.4 cm in length. Mild to moderate right-sided hydronephrosis. Visualized IVC grossly appears unremarkable. IMPRESSION: 1. Mild/moderate right-sided hydronephrosis. CT is recommended for further evaluation. Electronically signed by: Brandon Bowser MD (11/12/2019 4:04 PM) [facility]
--- NOTE | 2019-11-12 16:46 | RAD ---
Exam: CT of abdomen and pelvis without contrast INDICATION: Right-sided hydronephrosis, severe pain TECHNIQUE: Sequential axial images through the abdomen and pelvis obtained without IV contrast. Sagittal and coronal reformatted images were reconstructed from the axial data and reviewed. Comparisons: None FINDINGS: Heart size is normal. No pericardial effusion. Visualized lung bases are clear. No pleural effusion. Evaluation of solid organs is limited secondary to noncontrast technique. Liver, spleen, pancreas, gallbladder and adrenals are unremarkable. There is moderate right-sided hydronephrosis with a 4 mm calculus at the distal right ureter. Additionally there is a nonobstructing 2 mm calculus at the lower pole of the left kidney. No perinephric inflammation. Bladder is decompressed not well evaluated. Uterus is absent. No abnormal adnexal mass. Large and small bowel are unremarkable. Appendix is normal. No free intra-abdominal air or fluid. No obstruction. Abdominal aorta has a normal course and caliber. No enlarged intra-abdominal lymph nodes are identified. No suspicious osseous lesions or acute fractures. IMPRESSION: 1. There is a 4 mm calculus at the distal right ureter causing moderate right-sided hydronephrosis. 2. Nonobstructing left renal calculus. Exposure: One or more of the following in the visualized dose reduction techniques were utilized for this examination: 1. Automated exposure control 2. Adjustment of the MA and/or KV according to patient size 3. Use of iterative of reconstructive technique Electronically signed by: Mai Oh MD (11/12/2019 4:43 PM) [id number]
[2019-11-12 16:59] LABS: BACTERIA,URINE MANY /HPF (0-FEW); BILIRUBIN,URINE NEG (NEG); CLARITY,URINE TURBID; COLOR,URINE AMBER; GLUCOSE,URINE NEG (NEG); NITRITE,URINE POS (NEG); RBC,URINE >40 /HPF (0-2); SQUAMOUS EPITHELIAL CELL,UR OCC /LPF; UROBILINOGEN,URINE 0.2 mg/dL (0.2 mg/dL); WBC,URINE 20-40 /HPF (0-4)
[2019-11-12] MEDS ORDERED: KETOROLAC 15 MG/ML VIAL. IV ONE (17:30)
[2019-11-12] MEDS ORDERED: MORPHINE SULFATE 4 MG/ML DISP.SYRIN. IV ONE (17:30)
[2019-11-12] MEDS ORDERED: TAMS0.4C97 PO (17:54)
[2019-11-12] MEDS ORDERED: ONDA4TAB12 PO (17:54)
[2019-11-12] MEDS ORDERED: HYDR-3165 PO (17:54)
[2019-11-12] MEDS ORDERED: CIPR500T PO (17:55)
[2019-11-12] MEDS ORDERED: cefTRIAXone SODIUM 1 GM VIAL ONE (17:57)
[2019-11-12] MEDS ORDERED: IV NORMAL SALINE 50ML 50 ML ONE (17:57)
[2019-11-12 18:00] VITALS: BP 116/70
--- NOTE | 2019-11-12 18:05 | PHYS DOC ---
Past History Past Medical History: Anxiety, Depression, Other Additional Past Medical Histor: ADHD Past Surgical History: , Hysterectomy, Other Smoking: Cigarettes Alcohol Use: Rarely Drug Use: None Adult General Chief Complaint Chief Complaint: ABDOMINAL PAIN HPI HPI Patient is a 48 show female presents with right flank pain right upper quadrant pain for the last 3 days. Symptoms are moderate they're worsening with time, comes in waves acuity very very bad. She went to see her primary doctor today who ordered some labs and thought it might be a urinary tract infection but labs were currently pending. No fever no vomiting Review of Systems Review of Systems Constitutional: Denies fever or chills [] Eyes: Denies change in visual acuity, redness, or eye pain [] HENT: Denies nasal congestion or sore throat [] Respiratory: Denies cough or shortness of breath [] Cardiovascular: No additional information not addressed in HPI [] GI: Denies abdominal pain, nausea, vomiting, bloody stools or diarrhea [] : Denies dysuria or hematuria [] Musculoskeletal: Denies back pain or joint pain [] Integument: Denies rash or skin lesions [] Neurologic: Denies headache, focal weakness or sensory changes [] Endocrine: Denies polyuria or polydipsia [] All other systems were reviewed and found to be within normal limits, except as documented in this note. Current Medications Current Medications Current Medications Medications (Trade) Dose Ordered Sig/Emerita Start Time Stop Time Status Last Admin Dose Admin Ceftriaxone Sodium 1 gm/ Sodium Chloride 50 ml @ 100 mls/hr 1X ONCE 11/12/19 18:00 11/12/19 18:29 11/12/19 17:59 100 MLS/HR Ceftriaxone Sodium (Rocephin) 1 gm STK-MED ONCE 11/12/19 17:57 11/12/19 17:57 DC Ketorolac Tromethamine (Toradol 15mg Vial) 15 mg 1X ONCE 11/12/19 17:30 11/12/19 17:31 DC 11/12/19 17:01 15 MG Morphine Sulfate (Morphine 4mg Syringe) 4 mg 1X ONCE 11/12/19 17:30 11/12/19 17:31 DC 11/12/19 17:02 4 MG Ondansetron HCl (Zofran) 4 mg 1X ONCE 11/12/19 15:00 2/13/20 15:08 DC 11/12/19 15:00 4 MG Sodium Chloride 50 ml @ As Directed STK-MED ONCE 11/12/19 17:57 11/12/19 17:57 DC Allergies Allergies Allergies Coded Allergies Type Severity Reaction Last Updated Verified No Known Drug Allergies 01/27/14 No Physical Exam Physical Exam Constitutional: Well developed, well nourished, no acute distress, non-toxic appearance. [] HENT: Normocephalic, atraumatic, bilateral external ears normal, oropharynx moist, no oral exudates, nose normal. [] Eyes: PERRLA, EOMI, conjunctiva normal, no discharge. [] Neck: Normal range of motion, no tenderness, supple, no stridor. [] Cardiovascular:Heart rate regular rhythm, no murmur [] Lungs & Thorax: Bilateral breath sounds clear to auscultation [] Abdomen: Bowel sounds normal, soft, mild right upper quadrant tenderness Skin: Warm, dry, no erythema, no rash. [] Back: No tenderness, no CVA tenderness. [] Extremities: No tenderness, no cyanosis, no clubbing, ROM intact, no edema. [] Neurologic: Alert and oriented X 3, normal motor function, normal sensory function, no focal deficits noted. [] Psychologic: Affect normal, judgement normal, mood normal. [] Current Patient Data Vital Signs Vital Signs Date Time Temp Pulse Resp B/P (MAP) Pulse Ox O2 Delivery O2 Flow Rate FiO2 11/12/19 17:06 72 16 109/51 (70) 99 Room Air 11/12/19 14:49 98.6 Lab Results Laboratory Tests Test 11/12/19 14:44 11/12/19 16:19 White Blood Count 12.1 x10^3/uL (4.0-11.0) H Red Blood Count 4.12 x10^6/uL (3.50-5.40) Hemoglobin 12.8 g/dL (12.0-15.5) Hematocrit 38.8 % (36.0-47.0) Mean Corpuscular Volume 94 fL (79-100) Mean Corpuscular Hemoglobin 31 pg (25-35) Mean Corpuscular Hemoglobin Concent 33 g/dL (31-37) Red Cell Distribution Width 12.9 % (11.5-14.5) Platelet Count 234 x10^3/uL (140-400) Neutrophils (%) (Auto) 57 % (31-73) Lymphocytes (%) (Auto) 30 % (24-48) Monocytes (%) (Auto) 11 % (0-9) H Eosinophils (%) (Auto) 1 % (0-3) Basophils (%) (Auto) 1 % (0-3) Neutrophils # (Auto) 6.9 x10^3uL (1.8-7.7) Lymphocytes # (Auto) 3.6 x10^3/uL (1.0-4.8) Monocytes # (Auto) 1.3 x10^3/uL (0.0-1.1) H Eosinophils # (Auto) 0.2 x10^3/uL (0.0-0.7) Basophils # (Auto) 0.1 x10^3/uL (0.0-0.2) Sodium Level 143 mmol/L (136-145) Potassium Level 3.8 mmol/L (3.5-5.1) Chloride Level 105 mmol/L (98-107) Carbon Dioxide Level 30 mmol/L (21-32) Anion Gap 8 (6-14) Blood Urea Nitrogen 19 mg/dL (7-20) Creatinine 0.8 mg/dL (0.6-1.0) Estimated GFR (Cockcroft-Gault) 77.2 BUN/Creatinine Ratio 24 (6-20) H Glucose Level 85 mg/dL (70-99) Calcium Level 9.1 mg/dL (8.5-10.1) Total Bilirubin 0.3 mg/dL (0.2-1.0) Aspartate Amino Transferase (AST) 22 U/L (15-37) Alanine Aminotransferase (ALT) 33 U/L (14-59) Alkaline Phosphatase 116 U/L (46-116) Total Protein 7.1 g/dL (6.4-8.2) Albumin 3.8 g/dL (3.4-5.0) Albumin/Globulin Ratio 1.2 (1.0-1.7) Lipase 176 U/L (73-393) Urine Collection Type Unknown Urine Color Sonam Urine Clarity Turbid Urine pH 6.0 Urine Specific [place] 1.020 Urine Protein 100 mg/dl (NEG-TRACE) Urine Glucose (UA) Neg mg/dL (NEG) Urine Ketones (Stick) Neg mg/dL (NEG) Urine Blood Mod (NEG) Urine Nitrite Pos (NEG) Urine Bilirubin Neg (NEG) Urine Urobilinogen Dipstick 0.2 mg/dL (0.2 mg/dL) Urine Leukocyte Esterase Large (NEG) Urine RBC >40 /HPF (0-2) Urine WBC 20-40 /HPF (0-4) Urine Squamous Epithelial Cells Occ /LPF Urine Bacteria Many /HPF (0-FEW) EKG EKG [] Radiology/Procedures Radiology/Procedures [] Impressions: Liver, spleen, pancreas, gallbladder and adrenals are unremarkable. There is moderate right-sided hydronephrosis with a 4 mm calculus at the distal right ureter. Additionally there is a nonobstructing 2 mm calculus at the lower pole of the left kidney. No perinephric inflammation. Bladder is decompressed not well evaluated. Uterus is absent. No abnormal adnexal mass. Large and small bowel are unremarkable. Appendix is normal. No free intra-abdominal air or fluid. No obstruction. Abdominal aorta has a normal course and caliber. No enlarged intra-abdominal lymph nodes are identified. No suspicious osseous lesions or acute fractures. IMPRESSION: 1. There is a 4 mm calculus at the distal right ureter causing moderate right-sided hydronephrosis. 2. Nonobstructing left renal calculus. Exposure: One or more of the following in the visualized dose reduction techniques were utilized for this examination: 1. Automated exposure control 2. Adjustment of the MA and/or KV according to patient size 3. Use of iterative of reconstructive technique Electronically signed by: Mai Oh MD (11/12/2019 4:43 PM) [id number] Course & Med Decision Making Course & Med Decision Making Pertinent Labs and Imaging studies reviewed. (See chart for details) []CT scan shows a 4 mm stone creatinine normal pain is controlled in the emergency room patient is afebrile noted the peripheral leukocytosis of 12.1 with 20-40 white cells in the urine. I called Dr. Mane and spoke with him at 5:40 PM, he thought it be reasonable to give a dose of antibiotics in the emergency room and give ciprofloxacin as an outpatient with strict return precautions for spiking any fever at all. Patient is very well-appearing I think this is reasonable to talk with the patient about this and told her to come back right away for fever of 100.4 or greater or any other symptoms or concerns otherwise follow-up with primary care doctor and urology traction was given in the emergency room a perception for ciprofloxacin Flomax [place] and Zofran was provided and given strict return precautions were discussed and she is a very reliable patient. So Disclaimer So Disclaimer This electronic medical record was generated, in whole or in part, using a voice recognition dictation system. Departure Departure: Impression: Primary Impression: Nephrolithiasis Disposition: HOME, SELF-CARE Condition: STABLE Referrals: JOE MANE MD Patient Instructions: Kidney Stones, Ofop-mf-Qsuo Scripts Ciprofloxacin Hcl (CIPROFLOXACIN HCL) 500 Mg Tablet 1 TAB PO BID for UTI, #20 TAB Prov: LOWELL CULP MD 11/12/19 Tamsulosin Hcl (FLOMAX) 0.4 Mg Cap.er.24h 1 CAP PO DAILY for STONE, #30 CAP Prov: LOWELL CULP MD 11/12/19 Ondansetron (ONDANSETRON ODT) 4 Mg Tab.rapdis 1 TAB PO PRN Q6-8HRS PRN for NAUSEA/VOMITING, #16 TAB Prov: LOWELL CULP MD 11/12/19 Hydrocodone Bit/Acetaminophen (NORCO 5-325 TABLET) 1 Each Tablet 1-2 TAB PO Q4-6HRS PRN for PAIN, #15 TAB Prov: LOWELL CULP MD 11/12/19 LOWELL CULP MD Nov 12, 2019 18:05
== END 2019-11-12 18:22 | disposition home or self-care (01) ==
LOC: ER 14:41
DX: N20.0 Calculus of kidney (principal); F17.210 Nicotine dependence, cigarettes, uncomplicated; Z90.710 Acquired absence of both cervix and uterus
CPT/HCPCS: 36415; 74176; 76705; 80053; 81001; 83690; 85025; 87086; 96365; 96375; 99285; J0696; J1885; J2270; J2405; 87186; J7030